=== PATIENT | male | born 1965 | race Caucasian/White ===

== ENCOUNTER 2017-09-14 09:56 | Day surgery (SDC) | payer BC ==
[~2017-09-14 09:56] MED LIST: Buffered Lidocaine 0.9% SYRIN* 5 ML/SYR SYRINGE INTRADERM ONE; Famotidine TAB* 20 MG PO ONE
[2017-09-14] MEDS ORDERED: Famotidine TAB* 20 MG ONE (10:13)
[2017-09-14] MEDS ORDERED: ceFAZolin 2 GM PREMIX (*) 2 GM/50 ML BAG IVPB ONE (10:13)
[2017-09-14] MEDS ORDERED: Dexamethasone IV* 4 MG/ML 1 ML (4 MG) ONE (10:14)
[2017-09-14] MEDS: Dexamethasone IV* 4 MG/ML 1 ML (4 MG) IV SLOW PU ONE ×2 (10:32→10:33)
[2017-09-14] MEDS ORDERED: ROPIVACAINE 5 MG/ML 30 ML BTL (0.5%) ONE (11:59)
[2017-09-14] MEDS ORDERED: Atracurium* 10 MG/ML 10 ML VIAL ONE (12:00)
[2017-09-14] MEDS ORDERED: Bupivacaine 0.25% SDV* 30 ML ONE (12:10)
[2017-09-14] MEDS ORDERED: oxyCODONE/Acetamin 5/325 MG* TAB PO PRN (15:22)
[2017-09-14] MEDS ORDERED: DiMENhydriNATE IV* 50 MG/ML VIAL IV PUSH PRN (15:22)
[2017-09-14] MEDS ORDERED: fentaNYL* 50 MCG/ML 2 ML VIAL (100 MCG VIAL) IV PRN (15:22)
[2017-09-14] MEDS ORDERED: Naloxone* 0.4 MG/ML 1 ML VIAL IV PRN (15:22)
[2017-09-14] MEDS ORDERED: Ondansetron INJ* 2 MG/ML VIAL IV PRN (15:22)
[2017-09-14] MEDS ORDERED: Scopolamine 1.5 mg* PATCH TRANSDERM PRN (15:22)
[2017-09-14] MEDS ORDERED: HYDROmorphone INJ* 1 MG/ML CARPUJECT SYRINGE IV PRN (15:22)
[2017-09-14] MEDS ORDERED: acetaZOLAMIDE TAB* 250 MG ONE (16:27)
[2017-09-14] MEDS ORDERED: Cyclopentolate 1% OPTH.SOL* 2 ML BTL ONE (16:27)
[2017-09-14] MEDS ORDERED: Neomycin/Polymy/Dex OPHTH.OIN* 3.5 GM ONE (16:28)
[2017-09-14] MEDS ORDERED: Lidocaine 1% MPF* 2 ML VIAL ONE (16:28)
[2017-09-14] MEDS ORDERED: Tetracaine 0.5% OPTH.SOL 4 ML* 1 DROP BTL ONE (16:28)
[2017-09-14] MEDS ORDERED: Povidone Iodine 5% OPTH* 30 ML BTL ONE (16:28)
[2017-09-14] MEDS ORDERED: Tropicamide 1% OPTH.SOL* BTL ONE (16:28)
[2017-09-14] MEDS ORDERED: Ketorolac 0.5% OPHTH (NF) 0.5 % 5 ML BTL ONE (16:28)
[2017-09-14] MEDS ORDERED: Phenylephrine 2.5% OPTH.SOL* 2 ML BTL ONE (16:28)
[2017-09-14 17:29] VITALS: BP 131/82
--- NOTE | 2017-09-27 03:31 | OP ---
CC: Primary Care Physician OPERATIVE REPORT: DATE OF OPERATION: 09/14/17 DATE OF : 61 ATTENDING SURGEON: Jeffry Wu MD RATING EXAMINER: MARCIO Thomas An acute care assistant was needed for the entirety of the case to help with positioning, retraction, and was utilized throughout all portions of the case; particularly the second portion of the case, which was an open portion. ANESTHESIOLOGIST: Dr. Trent. ANESTHESIA: General interscalene block. PRE-OP DIAGNOSES: Right shoulder partial thickness tear of the supraspinatus, full thickness tear of subscapularis with biceps subluxation. POST-OP DIAGNOSES: Right shoulder partial thickness tear of the supraspinatus, full thickness tear of subscapularis with biceps subluxation. OPERATIVE PROCEDURE: Right shoulder arthroscopy with: 1. Glenohumeral debridement including chondroplasty. 2. Subacromial decompression with acromioplasty. 3. Repair of the supraspinatus tendon arthroscopically in a double-row fashion. 4. Open repair of the subscapularis rotator cuff tear through a separate incision, with open biceps tenodesis. Please add Modifier 22 due to complexity of the case, the duration that was longer than a standard case, the fact that we needed to re-drape and re-prep and reposition the patient for the open subscapularis repair. IMPLANTS USED: Three MultiFix anchors and three Healicoil anchors. COMPLICATIONS: None. ESTIMATED BLOOD LOSS: Minimal. INDICATIONS: Gwyn Marquez is a 52-year-old male, who sustained an injury to his right shoulder when he fell while he was at [place] and he slid down the ice , which happened on 07/11/17. He has had persistent pain and weakness. He cannot sleep comfortably. He was diagnosed with full thickness tear of the rotator cuff. The risks and benefits of surgery were discussed at length including, but are not limited to bleeding, infection, damage to nerves, vessels , surrounding structures, wound nonhealing, persistent pain, need for further surgery, scarring, stiffness, incomplete relief of symptoms and risk of anesthesia, failure of the repair, need for further surgery, frozen shoulder, fracture, damage to nerves, vessels, surrounding structures. He has elected to proceed with treatment. DESCRIPTION OF PROCEDURE: The patient was greeted in the preoperative area by the attending surgeon. The correct extremity was marked and the consent was confirmed. The patient then underwent interscalene nerve block by the anesthesiologist after which he was brought back to the operating suite, where he was placed in supine position on the operating table. He then underwent general anesthesia via endotracheal intubation after which he was placed in a right lateral decubitus position. All bony prominences were secured and the right shoulder was draped unsterile with 10 pounds of traction. The right shoulder was then prepped and draped in the usual sterile fashion with chlorhexidine soap, scrub, and alcohol wipe and a final prep with ChloraPrep. After appropriate surgical pause indicating site, side, procedure, administration of antibiotics, the standard posterolateral portal was made sharply with an 11 blade. Scope was introduced into the joint. There was obvious high-grade partial thickness tearing of the supraspinatus tendon, the biceps was subluxed anteriorly with inflation. There was evidence of full thickness subscap tear with rolled edge, placed far medially. There were mild chondral changes of the glenohumeral joint, grade 2 changes with unstable flaps , and anterior, inferior, superior, and posterior labrum had mild fraying. The anterior portal was made in an outside-in fashion. Shaver was used to do a small chondroplasty of the glenohumeral joints as well as to debride the anterior, posterior, and superior labrum. The biceps was then tenotomized for later tenodesis. The subscap was evaluated and there was evidence of full thickness tear. This was displaced and decided that this was too large tear to be treated arthroscopically. The undersurface of the supraspinatus had high- grade partial thickness tear, which was also debrided back. Once the debridement was complete, attention was directed to the subacromial space. The scope was positioned in the subacromial space. There was abundant bursa that was present, which was debrided back using the shaver. The undersurface of the acromion was then skeletonized and a small 4-0 oval cristopher was used to do acromioplasty. All the debris was removed from this portion and attention was directed to the rotator cuff. The supraspinatus tear was completed using an 11 blade and the electrocautery, shaver, the cristopher, and rasp were then used to debride the greater tuberosity. Through a separate stab incision, a 4.75 Healicoil was placed with excellent purchase. The patient had excellent quality bone. These sutures were then passed through the tendon in a horizontal mattress configuration. They were tied down and passed through a MultiFix anchor for lateral row fixation. At this point, the arthroscopic portion of the case was complete and the final images were obtained. The wounds were copiously irrigated. The portals were closed with 3-0 nylon. Sterile dressings were applied. The patient was then taken out of traction and placed in the supine position for the second portion of the case. The patient was appropriately positioned in the supine position. The arm was extended on the arm board to his side. The shoulder was prepped and draped with ChloraPrep again and entirely prepped and draped all over again. After a repeat surgical pause indicating site, side, procedure and administration of antibiotics in the second portion of the case, a 15-blade was used to make a deltopectoral incision. There was abundant swelling present. Soft tissues were carefully dissected to expose the muscle belly, which was present. The deltopectoral interval was identified and the cephalic vein was taken laterally. The soft tissue retractors were carefully placed to expose the clavipectoral fascia, which was carefully released. The conjoint tendon was identified and the coracoid identified with retractors in place. The bicipital groove was palpated after finding superior border of the pec and tracked proximally. This helped to delineate the edge of the subscap, which had a full thickness tear. Once the subscap was identified, the tendon had been retracted and the quality of the tissue was not great, but this was carefully immobilized and the borders were identified. The subscap was carefully released and the lesser tuberosity was prepared in usual sterile fashion with shaver and was repaired with a rasp and a rongeur. Once this was done, two 4.75 Healicoil were placed and the sutures were then passed in horizontal mattress configuration and then tied down and then passed it to 4.2 MultiFix sutures which were placed laterally. At this time, the remaining sutures were then passed through the biceps tendon to allow for tenodesis. The excess stump was then excised. After this, this was then tied down, the tenodesis was complete. The wounds were copiously irrigated with sterile saline. The deep layer was closed with 2-0 Ethibond in interrupted fashion. The subcutaneous tissues were closed with 2-0 Vicryl and the skin with 3-0 Monocryl. Sterile dressings were applied. The anterior wound was injected with 0.25% Marcaine plain. The shoulder was then dressed again. Final dressings were applied. Cryo/Cuff and UltraSling were applied. He was awoken from anesthesia and transferred to PACU in stable condition. POSTOPERATIVE PLAN: He will be discharged on pain medications and antibiotics. He will be allowed to do pendulum. No external rotation for 8 weeks. DVT prophylaxis was considered, but deferred due to no previous personal or family history. I will see the patient back in about 10 to 14 days. [id number]/CPS #: [id number] MTDD
== END 2017-09-14 17:25 | disposition home or self-care (01) ==
LOC: OREAST 09:56
PROVIDERS: ATTEND Orthopaedic Surgery
DX: S46.011A Strain of muscle(s) and tendon(s) of the rotator cuff of right shoulder, initial encounter (principal); S46.101A Unspecified injury of muscle, fascia and tendon of long head of biceps, right arm, initial encounter; W00.2XXA Other fall from one level to another due to ice and snow, initial encounter; Y93.89 Activity, other specified; Y92.89 Other specified places as the place of occurrence of the external cause; G89.18 Other acute postprocedural pain
CPT/HCPCS: A9270-GY; C1713; J0690; J1100; J2795